=== PATIENT | female | born 1970 | race Caucasian/White ===

== ENCOUNTER 2017-03-10 04:19 | Inpatient (IN) | payer OTHER ==
[~2017-03-10] VITALS: Ht 162.6 cm; Wt 85.7 kg
[2017-03-10] MEDS ORDERED: MIDOL COMPLETE1 EACH PO (04:28)
[2017-03-10 04:52] LABS: HEMATOCRIT 39.1 % (36.0-46.0); MCH 30.7 PG (29.0-34.0); MCV 93.1 FL (83-99); MEAN PLAT.VOLUME 10.4 uM^3 (9.5-12.4); PLATELET COUNT 198 K/uL (156-360); RBC DIS.WIDTH-CV 12.3 % (11.8-14.6); RBC DIS.WIDTH-SD 42.1 % (39-53); WHITE BLOOD COUNT 8.2 K/uL (4.1-10.2)
[2017-03-10 05:07] LABS: CHLORIDE 107 mEq/L (99-109)
[2017-03-10 05:08] LABS: POTASSIUM 3.8 mEq/L (3.7-5.4); SODIUM 141 mEq/L (136-147)
[2017-03-10 05:10] LABS: GLUCOSE 112 mg/dL (70-99)
[2017-03-10 05:11] LABS: ANION GAP 12 MEQ/L (2-14)
[2017-03-10 05:12] LABS: TOTAL BILIRUBIN 0.2 mg/dL (0.0-1.0)
[2017-03-10 05:13] LABS: ALKALINE PHOSPHATASE 34 IU/L (3-129); SERUM ETHYL ALCOHOL 42 mg/dL
[2017-03-10 05:15] LABS: UREA NITROGEN (BUN) 15 mg/dL (9-23)
[2017-03-10 05:17] LABS: LIPASE 19 U/L (1.0-51.0)
[2017-03-10 05:20] LABS: GFR ESTIMATE (CALCULATED) 56 mL/min/
[2017-03-10 05:25] LABS: QUANTITATIVE HCG < 4.0 MIU/ML
[2017-03-10 07:13] LABS: ADD MIUA? YES; BILIRUBIN NEGATIVE; BLOOD SMALL; COLOR STRAW ((YELLOW)); GLUCOSE (STRIP) NEGATIVE; KETONES 5; LEUKOCYTES NEGATIVE; NITRITE NEGATIVE; PROTEIN (STRIP) NEGATIVE; SPECIFIC GRAVITY 1.026 (1.000-1.030); UROBILINOGEN 0.2 MG/DL (0.2-1.0)
[2017-03-10 07:27] LABS: BACTERIA NONE SEEN /HPF; EPITHELIAL CELLS RARE /HPF; MUCUS TRACE /LPF; RED BLOOD CELLS 0-5 /HPF (0-5); UCUL ADDED? NO; WHITE BLOOD CELLS 0-5 /HPF (0-5)
[2017-03-10 15:23] VITALS: BP 114/74
[2017-03-10 20:14] VITALS: BP 108/57
[2017-03-10 23:50] VITALS: BP 91/54
[2017-03-11 03:40] VITALS: BP 100/51
[2017-03-11 07:19] LABS: ANION GAP 6 MEQ/L (2-14); CHLORIDE 108 MEQ/L (99-109); GFR ESTIMATE (CALCULATED) > 59 mL/min/; GLUCOSE 121 mg/dL (70-99); SAMPLE HEMOLYSIS CHECK 0; SAMPLE ICTERIC CHECK 0; SAMPLE LIPEMIA CHECK 0; SODIUM 141 MEQ/L (136-147); UREA NITROGEN (BUN) 7 mg/dL (9-23)
[2017-03-11 07:39] VITALS: BP 100/52
[2017-03-11 11:26] VITALS: BP 102/55
[2017-03-11] MEDS ORDERED: ZYRTEC5 MG PO (14:24)
[2017-03-11] MEDS ORDERED: NASAL DECONGEST30 M4 PO (14:25)
[2017-03-11] MEDS ORDERED: PHAZYME ULTRA180 MG PO (14:27)
[2017-03-11] MEDS ORDERED: ZANTAC150 MG PO (14:27)
[2017-03-11] MEDS ORDERED: ACETAMINOPHEN500 M9 PO (14:28)
[2017-03-11] MEDS ORDERED: PROAIR RESPICL90 MCG IH (15:09)
[2017-03-11 15:37] VITALS: BP 121/57
[2017-03-11 19:04] VITALS: BP 108/55
[2017-03-11 23:25] VITALS: BP 119/69
[2017-03-12 06:39] LABS: ANION GAP 7 MEQ/L (2-14); CHLORIDE 106 MEQ/L (99-109); GFR ESTIMATE (CALCULATED) > 59 mL/min/; GLUCOSE 100 mg/dL (70-99); POTASSIUM 3.9 MEQ/L (3.7-5.4); SAMPLE HEMOLYSIS CHECK 0; SAMPLE ICTERIC CHECK 0; SAMPLE LIPEMIA CHECK 0; SODIUM 141 MEQ/L (136-147); UREA NITROGEN (BUN) 4 mg/dL (9-23)
[2017-03-12 06:50] LABS: HEMATOCRIT 29.7 % (36.0-46.0); MCHC 32.3 G/DL (30.0-36.0); MCV 95.8 FL (83-99); MEAN PLAT.VOLUME 10.9 uM^3 (9.5-12.4); PLATELET COUNT 160 K/uL (156-360); RBC DIS.WIDTH-CV 12.7 % (11.8-14.6); RBC DIS.WIDTH-SD 44.5 % (39-53); WHITE BLOOD COUNT 7.5 K/uL (4.1-10.2)
[2017-03-12 07:29] VITALS: BP 140/61
[2017-03-12 11:10] VITALS: BP 147/88
[2017-03-12 15:30] VITALS: BP 134/73
[2017-03-12 23:07] VITALS: BP 116/55
[2017-03-13 06:52] LABS: HEMATOCRIT 29.5 % (36.0-46.0); MCH 30.1 PG (29.0-34.0); MCHC 32.2 G/DL (30.0-36.0); MCV 93.4 FL (83-99); PLATELET COUNT 170 K/uL (156-360); RBC DIS.WIDTH-SD 41.7 % (39-53); RED BLOOD COUNT 3.16 M/uL (3.80-5.20); WHITE BLOOD COUNT 4.8 K/uL (4.1-10.2)
[2017-03-13 07:05] VITALS: BP 124/64
[2017-03-13 07:14] LABS: ANION GAP 7 MEQ/L (2-14); CHLORIDE 107 MEQ/L (99-109); GFR ESTIMATE (CALCULATED) > 59 mL/min/; GLUCOSE 91 mg/dL (70-99); POTASSIUM 3.3 MEQ/L (3.7-5.4); SAMPLE HEMOLYSIS CHECK 0; SAMPLE ICTERIC CHECK 0; SAMPLE LIPEMIA CHECK 0; SODIUM 144 MEQ/L (136-147); UREA NITROGEN (BUN) 3 mg/dL (9-23)
[2017-03-13] MEDS ORDERED: HYDROCODON-ACE1 EA11 PO (07:59)
== END 2017-03-13 13:53 | disposition home or self-care (01) | DRG 339 ==
LOC: EME 04:19 → SDC 11:19 → 2EAST 12:53 → 2SOUTH 12:53 → ENRESERV 12:57 → 2EAST 14:59
PROVIDERS: Physician Assistant; Surgery
PROC: 0DTJ4ZZ Resection of Appendix, Percutaneous Endoscopic Approach (ICD-10-PCS; principal; 2017-03-10)
DX: K35.2 Acute appendicitis with generalized peritonitis (principal); E66.9 Obesity, unspecified; K38.1 Appendicular concretions; N80.1 Endometriosis of ovary; I96 Gangrene, not elsewhere classified; K22.70 Barrett's esophagus without dysplasia; R09.02 Hypoxemia; K58.9 Irritable bowel syndrome, unspecified; J45.909 Unspecified asthma, uncomplicated
CPT/HCPCS: 74177; 80048; 80053; 81003; 83605; 83690; 84702; 85027; 87040; 87070; 87075; 87186; 87205; 88304; 93005; 94640; 94640 76; 94799; 99202; 99281; 99284; G0480; J0330; J0692; J1100; J1650; J2250; J2405; J2543; J2710; J3010; J7030; J7050; J7120; S0020; S0028; S0030